=== PATIENT | female | born 1965 | race Caucasian/White ===

== ENCOUNTER → 2019-06-25 | Outpatient (CLI) | payer BC ==
[~2019-06-25] MED LIST: NORCO 325 MG-7.1 TAB PO; ROXICODONE 55 MG/TAB PO
== END ==
LOC: MC.RAD 05-26 16:45
DX: Z12.31 Encounter for screening mammogram for malignant neoplasm of breast (principal); R92.0 Mammographic microcalcification found on diagnostic imaging of breast

== ENCOUNTER → 2019-06-29 | Outpatient (CLI) | payer BC | LOC: MC.RAD 13:01 | DX: R92.1 Mammographic calcification found on diagnostic imaging of breast (principal); N64.89 Other specified disorders of breast; N63.10 Unspecified lump in the right breast, unspecified quadrant ==

== ENCOUNTER → 2021-11-09 | Outpatient (CLI) | payer BC | LOC: MC.RAD 09:50 | DX: Z12.31 Encounter for screening mammogram for malignant neoplasm of breast (principal); R92.0 Mammographic microcalcification found on diagnostic imaging of breast ==

== ENCOUNTER → 2021-12-12 | Outpatient (CLI) | payer BC ==
[~2021-12-12] MED LIST changes: +NORCO 325 MG-51 TAB PO
== END ==
LOC: MC.RAD 14:06
DX: D05.11 Intraductal carcinoma in situ of right breast (principal)
CPT/HCPCS: 32603; C1769

== ENCOUNTER 2021-12-14 07:33 | Day surgery (SDC) | payer BC ==
[2021-12-14] VITALS (7 sets, daily range): BP systolic 124–151; BP diastolic 58–84; PULSE 75–91; TEMP 97.9–98.5
[~2021-12-14] VITALS: Ht 162.6 cm; Wt 92.2 kg
[~2021-12-14 07:33] MED LIST changes: -NORCO 325 MG-51 TAB PO
[2021-12-14] MEDS ORDERED: NORCO 325 MG-51 TAB PO (11:47)
--- NOTE | 2021-12-14 13:35 | NUR ---
1145-PT TO BAY 6 PER CART FROM PACU. VS OBTAINED. CALL LIGHT WITHIN REACH. PT DENIES ANY NEEDS AT THIS TIME. 1245-PT TOLERATING WATER AND PUDDING. CONTINUES TO DENY ANY NEEDS. 1310-IV DC'D AT THIS TIME. 1320-DISCHARGE EDUCATION COMPLETED WITH PT AND HER FAMILY. VERBALIZED UNDERSTANDING OF HOME AND FOLLOW UP CARE. ALL QUESTIONS ANSWERED. DISCHARGE PAPERWORK GIVEN TO PT. 1335-PT OFF UNIT PER WHEELCHAIR. PT DISCHARGED TO HOME WITH FAMILY PER PERSONAL VEHICLE.
== END 2021-12-14 13:35 | disposition home or self-care (01) ==
LOC: SDCO 07:33
DX: D05.11 Intraductal carcinoma in situ of right breast (principal); I10 Essential (primary) hypertension; Z80.3 Family history of malignant neoplasm of breast
CPT/HCPCS: A4648; J0690; J1100; J2250; J2405; J2704; J2795; J3010; J7120

== ENCOUNTER → 2022-11-21 | Outpatient (CLI) | payer BC ==
[~2022-11-21] MED LIST changes: +NORCO 325 MG-51 TAB PO
== END ==
LOC: CANSCHCLI → MC.RAD 07:15
DX: Z12.31 Encounter for screening mammogram for malignant neoplasm of breast (principal); N60.19 Diffuse cystic mastopathy of unspecified breast

== ENCOUNTER → 2023-11-24 | Outpatient (CLI) | payer BC | LOC: MC.RAD 09:41 | DX: Z12.31 Encounter for screening mammogram for malignant neoplasm of breast (principal) ==